=== PATIENT | male | born 1985 | race Two or more races ===

== ENCOUNTER 2017-07-16 10:34 | Emergency (ER) | payer OTHER ==
[~2017-07-16] VITALS: Ht 180.3 cm; Wt 167.0 kg
[2017-07-16] MEDS ORDERED: KETOROLAC 30 MG/1 ML ONE (11:09)
[2017-07-16] MEDS ORDERED: FAMOTIDINE 20 MG TABLET ONE (11:09)
[2017-07-16] MEDS ORDERED: KETOROLAC 30 MG/1 ML IM ONE (11:30)
[2017-07-16] MEDS ORDERED: FAMOTIDINE 20 MG TABLET PO ONE (11:30)
[2017-07-16 11:38] VITALS: BP_SYST 150
== END 2017-07-16 11:46 | disposition home or self-care (01) ==
LOC: ED 10:45
DX: M13.172 Monoarthritis, not elsewhere classified, left ankle and foot (principal); M10.9 Gout, unspecified; K21.9 Gastro-esophageal reflux disease without esophagitis
CPT/HCPCS: 96372; 99283; J1885